=== PATIENT | female | born 1980 | race Caucasian/White ===

== ENCOUNTER 2017-02-02 17:32 | Emergency (ER) | payer SELFPAY ==
[~2017-02-02] VITALS: Ht 162.6 cm; Wt 67.5 kg
[2017-02-02 17:34] VITALS: Ht 162.6 cm; Wt 67.5 kg
[2017-02-02] MEDS ORDERED: ONDANSETRON 4 MG INJ IV STA (18:06)
[2017-02-02] MEDS ORDERED: SOD CHLORIDE 0.9% 1,000 ML IV STA (18:06)
[2017-02-02] MEDS ORDERED: ACETAMINOPHEN 325 MG TAB PO STA (18:06)
--- NOTE | 2017-02-02 18:06 | ERD ---
ER Documentation Chief Complaint Chief Complaint SPOTTING X 2 WEEKS , 6 WEEKS PREG , RT SIDE ABD PAIN HPI This 6 week female presents to ED with vaginal bleeding described as spotting , on TP only, right sided low pelvic pain , denies dysuria ROS All systems reviewed and are negative except as per history of present illness. Medications Home Meds Active Scripts Cephalexin* (Keflex*) 500 Mg Capsule, 500 MG PO TID for 7 Days, CAP Prov:RANULFO,ROMY 02/02/17 Physical Exam Vitals Vital Signs Date Time Temp Pulse Resp B/P Pulse Ox O2 Delivery O2 Flow Rate FiO2 02/02/17 17:34 98.8 82 16 136/76 99 vss triage notes reviewed Physical Exam Const: Well-nourished well-appearing well-hydrated 36-year-old female in no acute distress Head: Eyes: ENT: Neck: Resp: Rations even and unlabored, no respiratory distress Cardio: Abd: soft, symmetric, generalized nonspecific pelvic pain. No CVA tenderness Skin: Back: No midline or flank tenderness Ext: Neur: Awake and alert Psych: Normal Mood and Affect Result Diagram: 02/02/171856 Results 24 hrs Laboratory Tests Test 02/02/17 18:57 White Blood Count 8.210^3/ul Red Blood Count 4.3310^6/ul Hemoglobin 13.7g/dl Hematocrit 40.1% Mean Corpuscular Volume 92.6fl Mean Corpuscular Hemoglobin 31.6pg Mean Corpuscular Hemoglobin Concent 34.2g/dl Red Cell Distribution Width 12.6% Platelet Count 07355^3/UL Mean Platelet Volume 11.1fl Neutrophils % 67.9% Lymphocytes % 25.7% Monocytes % 4.5% Eosinophils % 1.1% Basophils % 0.7% Nucleated Red Blood Cells % 0.0/100WBC Neutrophils # 5.610^3/ul Lymphocytes # 2.110^3/ul Monocytes # 0.410^3/ul Eosinophils # 0.110^3/ul Basophils # 0.110^3/ul Nucleated Red Blood Cells # 0.010^3/ul Urine Color YELLOW Urine Clarity CLEAR Urine pH 5.0 Urine Specific [place] 1.014 Urine Ketones NEGATIVEmg/dL Urine Nitrite NEGATIVEmg/dL Urine Bilirubin NEGATIVEmg/dL Urine Urobilinogen NEGATIVEmg/dL Urine Leukocyte Esterase TRACELeu/ul Urine Microscopic RBC 5/HPF Urine Microscopic WBC 2/HPF Urine Squamous Epithelial Cells FEW/HPF Urine Bacteria FEW/HPF Urine Hemoglobin 2+mg/dL Urine Glucose NEGATIVEmg/dL Urine Total Protein NEGATIVEmg/dl Beta HCG, Quantitative 383.4mIU/ml Current Medications Medications (Trade) Dose Ordered Sig/Randa Route PRN Reason Start Time Stop Time Status Last Admin Dose Admin Sodium Chloride (NS) 1,000 ml @ 1,000 mls/hr Q1H STAT IV 02/02/17 18:06 02/02/17 19:05 DC 02/02/17 19:02 Acetaminophen (Tylenol Tab) 650 mg ONCE STAT PO 02/02/17 18:06 02/02/17 18:09 DC 02/02/17 19:02 Ondansetron HCl (Zofran Inj) 4 mg ONCE STAT IV 02/02/17 18:06 02/02/17 18:09 DC 02/02/17 19:02 Interpretation text CBC shows no evidence of hemorrhage or infection Chemistry shows no evidence of significant electrolyte abnormalities or renal insufficiency Liver function tests shows no evidence of acute biliary or hepatic dysfunction Urinalysis positive for trace leukocytosis . Procedures/MDM This 36-year-old female 6 weeks presents to emergency department for vaginal spotting on toilet paper, low right-sided pelvic pain, symptoms are described as sharp, intermittent, patient states that pain was so intense earlier that she had to lie down until it subsided. Emergency room course includes history and physical exam patient is alert, afebrile, with no change in appetite, reports nausea intermittently related to . Abdominal exam if equivocal for appendicitis. Negative CVA tenderness. Patient plan includes diagnostic labs, pain control with Tylenol, and obstetric ultrasound. Laboratory data shows no gross hemorrhage or infection, ultrasound impression by radiology, no intrauterine gestation visualized. Small to moderate amount of fluid in posterior cul-de-sac. Differential diagnosis includes early , missed or ectopic follow-up ultrasound and hCG levels recommended. Patient's beta qualitative hCG today is 383.4 this is a normal level for 6 weeks of or less. Plan to discharge patient home with option for Keflex, 500 mg 3 times daily 7 days for trace leukocytes seen on urinalysis, strict return to emergency room precautions for increased bleeding in pain, return to emergency room for serial hCG and ultrasound as discussed above in 48 hours. Follow-up with [facility], Patient is stable with no new complaints during ER course, clinically there is no current evidence to suggest pyelonephritis, sepsis, acute abdomen, or any other emergent condition appearing to require further evaluation or hospitalization. I feel the patient is stable for discharge at this time. I have discussed results, examination findings, the treatment plan with the patient and family present prior to discharge. Indications for emergent reevaluation, side effects of medication were also discussed. All questions were answered. Patient verbalizes understanding and agrees with plan of care. Departure Diagnosis: Primary Impression: Vaginal bleeding in patient at less than 20 weeks gestation Additional Impression: UTI (urinary tract infection) Urinary tract infection type: acute cystitis Hematuria presence: with hematuria Qualified Code: N30.01 - Acute cystitis with hematuria Condition: Good Patient Instructions: Bleeding During Early Referrals: [facility] REFERRAL LIST Additional Instructions: Thank you for for coming to [facility] for your care today. Please ask your nurse or provider if you have questions about your care today and do not leave until all your questions have been answered. Please use any medications given as directed and follow-up with your doctor (or the doctor you were referred to) in the next 2-3 days. If you do not have a primary care doctor you may follow up at the [facility] (listed below). You may also use motrin and tylenol as needed for fever and/or pain unless instructed otherwise by your provider or nurse. Indications for more urgent follow-up have been discussed, but you may return to the Emergency Department at ANY time for any worrisome or worsening symptoms. If you have abdominal pain, please know that no test or exam you received is perfect and you should follow up within 8 hours for continued pain. If you had any imaging studies today, such as an X-Ray or CT Scan, these studies will be reviewed later by a radiologist. You will be called if there are important findings that were not identified today, so make sure the contact information you provided at registration is correct. If you received any narcotic pain control medicine today, such as Vicodin, Morphine or Dilaudid, your coordination and judgment may be affected for a number of hours. Please do not drive or operate heavy machinery, and you may want someone to assist you at home. If you were given a prescription for narcotic medication, be aware that it is very addictive- use sparingly and only if necessary. RANULFO,ROMY Feb 02, 2017 18:06
--- NOTE | 2017-02-02 18:30 | RADRPT ---
PROCEDURE: US Pelvis. CLINICAL INDICATION: vaginal bleeding TECHNIQUE: Multiple sonographic images of the pelvis were obtained utilizing a transabdominal and endovaginal technique. The images were reviewed on a PACS workstation. COMPARISON: None. FINDINGS: The uterus is normal in size and demonstrates a normal appearance of the myometrium. The endometria l stripe is homogeneous in appearance and has the thickness of 5 mm. No intrauterine gestation is noted. The ovaries are normal in size and echogenicity. Normal Doppler flow is identified in both ovaries. The right ovary measures 4.1 x 2.4 x 2.4 cm. The left ovary measures 3.3 x 1.6 x 2.1 cm. There is a small to moderate amount of fluid in the posterior cul-de-sac. RPTAT: AA IMPRESSION: No intrauterine gestation visualized. Small to moderate amount of fluid in the posterior cul-de-sac. Differential diagnosis includes early , missed or ectopic . Follow-up ultrasound and HCG levels is recommended. .Kemar Shaw MD, MD Date Time Electronically viewed and signed by .Kemar Shaw MD, on 02/02/2017 18:30 .S/
[2017-02-02 19:15] LABS: BASOPHIL # 0.1 10^3/ul (0.0-0.1); BASOPHILS % 0.7 % (0.0-2.0); EOSINOPHILS # 0.1 10^3/ul (0.0-0.5); EOSINOPHILS % 1.1 % (0.0-7.0); HEMATOCRIT 40.1 % (37.0-47.0); HEMOGLOBIN 13.7 g/dl (12.0-16.0); LYMPHOCYTES # 2.1 10^3/ul (0.8-2.9); LYMPHOCYTES % 25.7 % (15.0-51.0); MEAN CORPUSCULAR HEMOGLOBIN 31.6 pg (29.0-33.0); MEAN CORPUSCULAR HGB CONC 34.2 g/dl (32.0-37.0); MEAN CORPUSCULAR VOLUME 92.6 fl (82.0-101.0); MEAN PLATELET VOLUME 11.1 fl (7.4-10.4); MONOCYTE # 0.4 10^3/ul (0.3-0.9); MONOCYTES % 4.5 % (0.0-11.0); NEUTROPHIL # 5.6 10^3/ul (1.6-7.5); NEUTROPHILS % 67.9 % (39.0-77.0); PLATELET COUNT 289 10^3/UL (140-415); RED BLOOD COUNT 4.33 10^6/ul (4.20-5.40); RED CELL DISTRIBUTION WIDTH 12.6 % (11.5-14.5); WHITE BLOOD COUNT 8.2 10^3/ul (4.8-10.8)
[2017-02-02 19:38] LABS: ADD UMIC YES; UR ASCORBIC ACID 40 mg/dL (NEGATIVE); UR BACTERIA FEW /HPF (NONE SEEN); UR BILIRUBIN (Dip) NEGATIVE (NEGATIVE); UR BLOOD (Dip) 2+ mg/dL (NEGATIVE); UR CLARITY CLEAR (CLEAR); UR COLOR YELLOW (YELLOW); UR GLUCOSE (Dip) NEGATIVE (NEGATIVE); UR KETONES (Dip) NEGATIVE (NEGATIVE); UR LEUKOCYTE ESTERASE (Dip) TRACE Leu/ul (NEGATIVE); UR NITRITE (Dip) NEGATIVE (NEGATIVE); UR RBC 5 /HPF (0-5); UR SPECIFIC GRAVITY (Dip) 1.014 (1.003-1.030); UR SQUAMOUS EPITHELIAL CELL FEW /HPF (FEW); UR TOTAL PROTEIN (Dip) NEGATIVE (NEGATIVE); UR UROBILINOGEN (Dip) NEGATIVE (NEGATIVE)
[2017-02-02] MEDS ORDERED: CEPH-443 PO (20:27)
== END 2017-02-02 20:53 | disposition home or self-care (01) ==
LOC: FTE 17:32
DX: O20.9 Hemorrhage in early pregnancy, unspecified (principal); O23.11 Infections of bladder in pregnancy, first trimester; R10.2 Pelvic and perineal pain; Z3A.01 Less than 8 weeks gestation of pregnancy
CPT/HCPCS: 76801; 76817; 81001; 84702; 85025; J2405; J7030; 36415; 96374

== ENCOUNTER 2017-02-04 17:31 | Emergency (ER) | payer SELFPAY ==
[~2017-02-04] VITALS: Ht 160 cm; Wt 68.0 kg
[~2017-02-04 17:31] MED LIST: CEPH-443 PO
[2017-02-04 17:53] VITALS: Ht 160 cm; Wt 68.0 kg
== END 2017-02-04 19:41 | disposition left against medical advice (07) ==
LOC: E/R 17:31
DX: Z53.21 Procedure and treatment not carried out due to patient leaving prior to being seen by health care provider (principal)